=== PATIENT | female | born 1975 | race Caucasian/White ===

== ENCOUNTER 2019-12-06 07:30 | Outpatient (CLI) | payer MEDICAID ==
[~2019-12-06] VITALS: Ht 170.2 cm; Wt 62.7 kg
[~2019-12-06 07:30] MED LIST: AMLO1CAP9 PO; VARE0.5T PO
[2019-12-06] MEDS ORDERED: SODIUM CHLORIDE 0.9%, 500ML ONE (07:52)
[2019-12-06] MEDS ORDERED: methylPREDNISolone SOD SUCC 125 MG/2 ML IVPush ONE (08:00)
[2019-12-06] MEDS ORDERED: DIPHENHYDRAMINE 50 MG/ML, 1ML IVPush ONE (08:00)
[2019-12-06] MEDS ORDERED: ACETAMINOPHEN 325 MG TABLET PO ONE (08:00)
[2019-12-06] MEDS ORDERED: FILTER 0.22 MICRON IV ONE (08:00)
[2019-12-06] MEDS ORDERED: OCRELIZUMAB IVPB ONE (08:30)
[2019-12-06] MEDS ORDERED: SODIUM CHLORIDE 0.9% IVPB ONE (08:30)
[2019-12-06 08:52] VITALS: BP 154/101
[2019-12-06] MEDS ORDERED: DIPHENHYDRAMINE 50 MG/ML, 1ML IVPush PRN (10:00)
[2019-12-06] MEDS ORDERED: ACETAMINOPHEN 325 MG TABLET PO PRN (10:00)
== END 2019-12-06 23:59 | disposition home or self-care (01) ==
LOC: INFUSION 07:30
PROVIDERS: ATTEND Psychiatry & Neurology Neurology
DX: G35 Multiple sclerosis (principal)
CPT/HCPCS: 96365; 96366; 96375; J1200; J2350; J2930; J7040

== ENCOUNTER 2020-10-31 12:50 | Outpatient (CLI) | payer MEDICAID ==
[2020-10-31] MEDS ORDERED: GADOTERATE 7.5 MMOL/15 ML SYR ONE (14:21)
== END 2020-10-31 23:59 | disposition home or self-care (01) ==
LOC: CFH 12:50
PROVIDERS: ATTEND Psychiatry & Neurology Neurology
DX: G93.89 Other specified disorders of brain (principal); G35 Multiple sclerosis
CPT/HCPCS: 70553; A9575